=== PATIENT | male | born 1965 | race Caucasian/White ===

== ENCOUNTER 2022-11-17 11:23 | Emergency (ER) | payer MEDICARE ==
[2022-11-17 11:58] LABS: #Monocytes 0.6 10x3/uL (0.0-1.1); #Neutrophils 5.1 10x3/uL (1.5-8.4); %Basophils 0.1 % (0.0-2.0); %Eosinophils 0.6 % (0.0-6.0); %Lymphocytes 17.5 % (18.0-47.0); %Monocytes 8.9 % (0.0-10.0); %Neutrophils 72.5 % (40.0-75.0); Hematocrit 41.9 % (38.8-50.0); Hemoglobin 13.8 g/dL (13.5-17.5); Mean Corpuscular HGB CONC 32.9 g/dL (32.0-36.0); Mean Corpuscular Hemoglobin 30.2 pg (27.0-33.0); Mean Corpuscular Volume 91.7 fl (81.2-95.1); Mean Platelet Volume 11.7 fl (7.4-10.4); Platelet Count 196 10x3/uL (150-450); RBC Distribution Width 12.8 % (11.5-14.5); Red Blood Cell (RBC) Count 4.57 10x6/uL (4.32-5.72); White Blood Cell (WBC) Count 7.1 10x3/uL (3.5-10.5)
[2022-11-17 12:08] LABS: ALT (SGPT) 20 U/L (8-55); AST (SGOT) 29 U/L (5-34); Albumin 4.4 g/dL (3.5-5.0); Alkaline Phosphatase 89 U/L (40-110); Anion Gap 17 mmol/L (10-20); BUN (Urea Nitrogen) 18 mg/dL (8.4-25.7); Bilirubin, Total 0.7 mg/dL (0.2-1.2); Calc. Creatinine Clearance 0 mL/min (70-130); Carbon Dioxide 30 mmol/L (22-29); Chloride 89 mmol/L (98-107); Estimated GFR 59; Globulin 3.1 g/dL (2.4-3.5); Glucose 123 mg/dL (70-105); Potassium 2.9 mmol/L (3.5-5.1); Protein, Total 7.5 g/dL (6.0-8.3); Sodium 133 mmol/L (136-145)
[2022-11-17 12:36] LABS: Lipase 25 U/L (8-78); Magnesium 1.3 mg/dL (1.6-2.6)
[2022-11-17 12:39] LABS: Troponin I Less than 0.010 ng/mL (< 0.028)
[2022-11-17] MEDS ORDERED: Calcium Carbonate 500 MG ChewTAB ONE (12:52)
[2022-11-17] MEDS ORDERED: Potassium Chloride 20 MEQ TAB ONE (12:53)
[2022-11-17] MEDS ORDERED: Magnesium 2 GM/50 ML BAG (IN WATER) ONE (13:31)
== END 2022-11-17 15:10 | disposition home or self-care (01) ==
LOC: CSHERS 11:23
DX: B34.9 Viral infection, unspecified (principal); E87.6 Hypokalemia; E83.51 Hypocalcemia
CPT/HCPCS: 36415; 71045; 80053; 83690; 83735; 83880; 84484; 85025; 87040; 93005; 96365; J3475